=== PATIENT | female | born 1980 ===

== ENCOUNTER 2016-09-25 06:52 | Emergency (ER) | payer MEDICAID ==
[~2016-09-25] VITALS: Ht 152.4 cm; Wt 77.3 kg
[~2016-09-25 06:52] MED LIST: Ascorbic Acid PO; DOCU-41 PO; FERR-74 PO; HYDR-4003 PO; IBUP800T28 PO; LABE200T PO; OMEP40CA36 PO; PREN1TAB25 PO
[2016-09-25 07:03] VITALS: BP 168/96; PULSE 93; RESP 18; O2SAT 100
--- NOTE | 2016-09-25 07:38 | ED.REPORT ---
HPI-Headache Date of Service Sep 25, 2016 ED Provider: Hector Lee MD History of Present Illness: OCC Pt is a 36 year old female with a history of HTN who presents to the ED complaining of temporal headache onset 21:00 yesterday while at rest. She c/o associated neck pain, vomiting, and nausea. She denies recent trauma, numbness, weakness, rash, and lower extremity swelling. Pt reports that her headache and neck pain are exacerbated with sitting up. She states that she took Vicodin at 03:30 with moderate relief. Nursing Notes Stated Complaint: MIGRAINE Chief Complaint: Headache Nursing Notes Reviewed: Yes (Flipswap not reconciled) Allergies: Coded Allergies: No Known Allergies (Verified Allergy, Unknown, 11/04/15) Scheduled ([Ascorbic Acid]) 500 MG TABLET 500 MG PO BIDWM Docusate Sodium (Colace) 100 Mg Capsule 100 MG PO BID Ferrous Sulfate (Feosol) 325 Mg Tablet 325 MG PO BIDWM Labetalol (Labetalol) 200 Mg Tablet 200 MG PO BID Omeprazole (Omeprazole) 40 Mg Capsule.dr 40 MG PO DAILY Vit#96/Ferrous Fum/FA ( Tablet) 1 Each Tablet 1 EACH PO DAILY Scheduled PRN Hydrocodone-Acetaminophen 5-325 mg (Hydrocodone-Acetaminophen 5-325 mg) 1 Each Tablet 1-2 TABLET PO Q4H PRN PRN For Pain Ibuprofen (Ibuprofen) 800 Mg Tablet 800 MG PO Q6H PRN PRN For Pain Promethazine (Promethazine) 25 Mg Tablet 25 MG PO Q4H PRN PRN Migraine or Nausea General Time Seen by MD: 07:37 Chief Complaint Headache Hx Obtained From: Patient Arrived By: Walk-in Sudden in Onset?: Yes Onset Occurred: Yesterday Symptom Duration: Since onset Location: : Temporal bilateral Quality: Painful Severity: Current: Moderate Severity: Maximum: Moderate Recent Healthcare: No recent doctor visit, No recent hospitalization Similar Sx Previous: Yes Past Medical History Past Medical History Reports: Hypertension, Denies: Diabetes mellitus Past Surgical History None Smoking History Current Every Day Smoker Social History Noncontributory Alcohol Use: "Social" Drug Use: Denies drug use Other Social History: Good social support Ambulatory Status Independent Review of Systems Constitutional: Denies: Fever GI: Reports: Nausea, Vomiting Musculoskeletal: Reports: Neck pain, Denies: Extremity swelling Skin: Denies Rash Neurologic: Reports: Headache, Denies: Numbness, Weakness Complete sys rev & neg: except as marked. Physical Exam Initial Vital Signs Vital Signs (First) Date Time Temp Pulse Resp B/P Pulse Ox O2 Delivery O2 Flow Rate FiO2 09/25/16 07:03 36.5 93 18 168/96 100 Room Air Initial VS: Reviewed, Vital signs normal (mild HTN) Respiratory: Breath sounds normal, Clear to auscultation, No respiratory distress Cardiovascular: Regular rate & rhythm, Heart sounds normal, Intact distal pulses Abdomen / GI: Soft, Non-tender Extremities: Vascular intact, Neuro intact Skin: Warm, Dry, No cyanosis Psychiatric: Mood/affect normal, Behavior normal, Normal thought content General/Constitutional: Awake, Alert Appears uncomfortable and sitting in a darkened room Head / Eyes: Atraumatic, Normocephalic Neck: Atraumatic, Supple, Full range of motion Neurologic: Oriented X3, Speech NL Interpretation & Diagnostics Lab Results Interpretation Test 09/25/16 07:10 Hold Purple Top Tube Received (Received) Hold Blue Top Tube Received (Received) Hold Harper Top Tube Received (Received) Hold Soto Top Tube Received (Received) Re-Eval/Medical Decision Med Decision/Clinical Course This is a 36-year-old female who presents with a headache. She gets headaches intermittently, states the last one she had like this was several years ago. She has had no recent trauma, no recent fever or infectious symptoms, and has no neurologic symptoms. She has some mild photophobia and nausea. On exam she appears uncomfortable, sitting in a darkened room, but has a normal neurologic exam. Not finding any clinical red flags to indicate a need for emergent neuro imaging or lumbar puncture. The patient received initial treatment Phenergan and Benadryl with marked but incomplete improvement. Received Toradol, still better, but still had a mild headache received Haldol, and ultimately to get the very last minute at a headache presented did receive 0.5 mg of Dilaudid with complete relief of symptoms. She is discharged in improved condition with some oral promethazine for when necessary use. Last ibuprofen. He is discharged in good condition Source of Hx: Old records Re-Evaluation/Progress #1: Time of Eval: 09:17 Re-Evaluation/Progress Note: Pt rechecked. She reports that she is feeling moderately better. All questions addressed. Re-Evaluation/Progress #2: Time of Eval: 10:10 )( Patient Status: Condition improved Re-Evaluation/Progress Note: Pt rechecked. Pt reports that she is feeling moderately better, but not completely. All questions addressed. Re-Evaluation/Progress #3: Time of Eval: 11:15 Re-Evaluation/Progress Note: Pt rechecked. Informed pt of plan for discharge. Pt understands and agrees with plan for discharge. F/U instructions and RTER warnings given. All questions addressed. Differential Diagnosis: Positive: Headache, migraine, Negative: Carbon monoxide toxicity, Carotid artery dissection, Cerebellar ischemia, Cerebrovascular accident, Closed head injury, Fever-induced, Headache , cluster, Headache, hypertensive, Headache, post LP, Headache, post-traumatic, Hemorrhage, cerebellar, Hemorrhage, epidural, Hemorrhage, intracerebral, Hemorrhage, subarachnoid, Hemorrhage, subdural, Meningitis, Preeclampsia, Trigeminal neuralgia Counseled Regarding: Diagnosis, Lab results, Need for follow-up, When/why to return to ED Discharge & Departure Impression: Primary Impression: Migraine Migraine type: unspecified Status migrainosus presence: without status migrainosus Intractability: not intractable Qualified Code: G43.909 - Migraine, unspecified, not intractable, without status migrainosus Disposition: Home Discharge Condition All VS Reviewed: Yes Condition: Stable Additional Instructions: 1. Rest. 2. Take promethazine 25mg up to every 4 hours as needed for headache (or nausea) . NOTE: this medication does cause drowsiness. No driving for at least 4 hours after taking. 3. Continue your regular medications. 4. Return if new or worsening symptoms. 5. Continue ibuprofen 400-800mg three times a day as needed for pain. Referrals: Lorena Drummond MD (PCP/Family) Scribe Attestation Portions of this note were transcribed by Myrtle Boggs. I, Dr. Lee personally performed the history, physical exam and medical decision-making; I reviewed and confirmed the accuracy of the information in the transcribed note. Signed by: Svetlana Johnson, 09/25/16. copies to: Lorena Drummond MD, Matthew F MD Sep 25, 2016 07:38 Myrtle Tinoco Sep 25, 2016 07:44
[2016-09-25] MEDS ORDERED: Promethazine Inj 25 MG in 0.9% Sodium Chloride 50 ML IV ONE (07:45)
[2016-09-25] MEDS ORDERED: Haloperidol 5 mg/mL Inj IVPUSH ONE (09:20)
[2016-09-25] MEDS ORDERED: PROM25TA14 PO (10:52)
[2016-09-25] MEDS ORDERED: HYDROmorphone 0.5 mg/0.5 mL iSecure Syringe IVPUSH ONE (11:00)
[2016-09-25 11:34] VITALS: BP 136/59; PULSE 79; RESP 16; O2SAT 99
== END 2016-09-25 11:36 | disposition home or self-care (01) ==
LOC: SED 06:52
DX: G43.909 Migraine, unspecified, not intractable, without status migrainosus (principal); I10 Essential (primary) hypertension; F17.200 Nicotine dependence, unspecified, uncomplicated
CPT/HCPCS: 96374; 96375; 99284; J1170; J1200; J1630; J1885; J2550